=== PATIENT | male | born 1935 ===

== ENCOUNTER 2017-08-23 18:40 | Emergency (ER) | payer MEDICARE, MEDICAID ==
[2017-08-23 18:40] VITALS: BMI 28.3
--- NOTE | 2017-08-23 19:10 | C.PDOC ---
History Of Present Illness 82 year old male presents to the emergency department with complaints of nasal congestion and headache persisting for the past couple of days, Patient reports that he has severe nasal allergies. Patient denies nausea, vomiting, and photophobia. Time Seen by Provider: 08/23/17 19:09 Chief Complaint (Nursing): Headache History Per: Patient History/Exam Limitations: no limitations Onset/Duration Of Symptoms: Days Current Symptoms Are (Timing): Still Present Severity: Moderate Quality: Aching Associated Symptoms: denies: Photophobia, Nausea, Vomiting Past Medical History Reviewed: Historical Data, Nursing Documentation, Vital Signs Vital Signs: Last Vital Signs Temp 97.8 F 08/23/17 18:44 Pulse 54 L 08/23/17 18:44 Resp 20 08/23/17 18:44 BP 136/77 08/23/17 18:44 Pulse Ox 98 08/23/17 20:56 - Medical History PMH: COPD (EMPHYSEMA), CVA, Emphysema, HTN, Hypercholesterolemia, Chronic Kidney Disease, TIA Surgical History: No Surg Hx - [facility] Procedures DX ULTRASOUND-HEART (11/03/13) OTHER ESOPHAGOSCOPY (11/03/13) Family History: States: No Known Family Hx - Social History Hx Tobacco Use: No Hx Alcohol Use: No Hx Substance Use: No - Immunization History Hx Tetanus Toxoid Vaccination: No Hx Influenza Vaccination: No Hx Pneumococcal Vaccination: No Review Of Systems Constitutional: Negative for: Fever, Chills ENT: Positive for: Nose Congestion Respiratory: Negative for: Shortness of Breath Gastrointestinal: Negative for: Nausea, Vomiting Skin: Negative for: Rash Neurological: Positive for: Headache. Negative for: Other (photophobia) Psych: Negative for: Anxiety Physical Exam - Physical Exam Appears: Non-toxic, No Acute Distress Skin: Warm, Dry Nose: Discharge (clear secretions), Other (erythema at nasal mucosa) Oral Mucosa: Moist, Other (clear secretions, oropharynx clear) Throat: No Erythema, No Exudate Neck: Supple Respiratory: Normal Breath Sounds, Other (patient is speaking full sentences) ED Course And Treatment O2 Sat by Pulse Oximetry: 98 (RA) Pulse Ox Interpretation: Normal - CT Scan/US Sinuses w/o Contrast Other Rad Studies (CT/US): Read By Radiologist, Radiology Report Reviewed CT/US Interpretation: 1. Retention cysts or polyps in the right maxillary sinus. 2. Membrane thickening left maxillary sinus is mild with small air fluid level Progress Note: Plan: CT Sinuses w/o Contrast. Solu-Medrol 125mg IVP. NaCl IV Fluids. Toradol 15mg IVP Reevaluation Time: 20:58 Reassessment Condition: Improved Disposition Counseled Patient/Family Regarding: Studies Performed, Diagnosis, Need For Followup, Rx Given - Disposition Referrals: Wojciech Ferreira MD [Staff Provider] - Disposition: HOME/ ROUTINE Disposition Time: 19:09 Condition: FAIR Additional Instructions: Please return if symptoms recur Prescriptions: Mometasone Furoate [Nasonex] 17 gm NS DAILY #1 spray.pump Prednisone [Deltasone] 20 mg PO DAILY #5 tablet Instructions: Seasonal Allergies (DC) Forms: [employer] (Bengali) - Clinical Impression Clinical Impression: Headache, Seasonal allergies, Nasal congestion - Scribe Statement The provider has reviewed the documentation as recorded by the Scribe (Erich Key) Provider Attestation: All medical record entries made by the Scribe were at my direction and personally dictated by me. I have reviewed the chart and agree that the record accurately reflects my personal performance of the history, physical exam, medical decision making, and the department course for this patient. I have also personally directed, reviewed, and agree with the discharge instructions and disposition.
[2017-08-23] MEDS ORDERED: Sodium Chloride 0.9% 1,000 ML IV ONE (19:40)
[2017-08-23] MEDS ORDERED: Sodium Chloride 0.9% 0 ML IV ONE (19:56)
[2017-08-23 21:35] VITALS: BP 135/75; PULSE 60; RESP 18; TEMP 98.2; O2SAT 99
--- NOTE | 2017-08-24 07:33 | CT ---
CT sinuses History: Sinus pain. Comparison: None available. Technique: Multiple contiguous axial images were performed through the paranasal sinuses without the use of intravenous contrast. Subsequently, sagittal and coronal reformatted images were obtained. This CT exam was performed using one or more of the following dose reduction techniques: Automated exposure control, adjustment of the mA and/or kV according to patient size, and/or use of iterative reconstruction technique. Findings: Mucosal retention cysts and/or polyps in the right maxillary sinus measuring up to 1.8 x 1.0 centimeters. Mucosal thickening in the left maxillary sinus with associated small air-fluid level. Sphenoid sinus is preserved. Mild mucosal thickening of the ethmoid air cells. Rightward nasal septal deviation. Moderate mucosal thickening and hypertrophy of the middle and inferior nasal turbinates. Frontal sinus is preserved. Dental pathology. Impression: Sinus mucosal disease as above. These findings were preliminarily reported at 8:44 p.[address]. on 08/23/[address] Kody Shepard from [employer].
== END 2017-08-23 21:35 | disposition home or self-care (01) ==
LOC: C.ER 18:40
DX: J30.2 Other seasonal allergic rhinitis (principal); R51 Headache; R09.81 Nasal congestion